=== PATIENT | male | born 1965 | race African-American/Black ===

== ENCOUNTER 2017-02-21 05:52 | Emergency (ER) | payer OTHER ==
[~2017-02-21] VITALS: Ht 175.3 cm; Wt 80.0 kg
[~2017-02-21 05:52] MED LIST: OLAN20TA OR; OMEP20TA39 PO; PROM25SU8 PO; TYLE3 PO
[2017-02-21 05:53] VITALS: BP 144/95; PULSE 78; RESP 16; TEMP 99.2; O2SAT 96
--- NOTE | 2017-02-21 06:17 | PD ---
HPI Chief Complaint: Psychiatric Symptoms Time Seen by Provider: 06:01 Travel History International Travel<30 days: No Contact w/Intl Traveler<30days: No Traveled to known affect area: No History of Present Illness HPI 51-year-old male presents to emergency department requesting refill of his psychotropic medicines. He states that he has been out of [facility] now for 2 months. He had been on medications for bipolar. He states that since she's been out he is been drinking alcohol and smoking marijuana. He is becoming more paranoid. He states that his hearing voices. He feels that there is people under his bed. He has not been sleeping. He is hoping to have his medications refilled. He has not followed up with psychiatric care since his discharge from [facility]. He denies any suicidal or homicidal ideation. Denies any toxic ingestions. No medical complaints other than insomnia. PFSH Past Medical History Narrative Medical Bipolar, substance abuse Seizures: Yes (STATES IN THE PAST ) ?: Not Past Surgical History Surgical History: No Previous Surgery Social History Alcohol Use: Yes Tobacco Use: Yes (2-3 PPD ) Substance Use: Yes (MARIJUANA ) Allergies-Medications (Allergen,Severity, Reaction): Uncoded Allergies: NKDA (Allergy, Severe, 07/26/11) Reported Meds & Prescriptions Reported Meds & Active Scripts Active Hm Omeprazole (Omeprazole) 20 Mg Tab 40 Mg PO DAILY 30 Days Phenergan (Promethazine HCl) 25 Mg Tab 25 Mg PO Q6H PRN FOR NAUSEA/VOMITING Tylenol #3 (Acetaminophen/Codeine Phosphate) 300 Mg/30 Mg Tab 1 Tab PO Q6HPRN Reported Olanzapine 20 Mg Tab 20 Mg OR HS Review of Systems General / Constitutional: No: Fever Eyes: No: Visual changes HENT: No: Headaches Cardiovascular: No: Chest Pain or Discomfort Respiratory: No: Shortness of Breath Gastrointestinal: No: Abdominal Pain Genitourinary: No: Dysuria Musculoskeletal: No: Pain Skin: No Rash Neurologic: No: Weakness Psychiatric: Positive: Anxiety, Depression, Disorder of Thought, Mood Disorder , Substance Abuse, No: Suicidal Ideations, Homicidal Ideation Endocrine: No: Polydipsia Hematologic/Lymphatic: No: Easy Bruising Physical Exam Narrative GENERAL: Well-nourished, well-developed patient. SKIN: Warm and dry. HEAD: Normocephalic and atraumatic. EYES: No scleral icterus. No injection or drainage. ENT: No nasal drainage noted. Mucous membranes pink. Airway patent. NECK: Supple, trachea midline. Moves head freely without obvious discomfort. CARDIOVASCULAR: Regular rate and rhythm without murmurs, gallops, or rubs. RESPIRATORY: Breath sounds equal bilaterally. No accessory muscle use. GASTROINTESTINAL: Abdomen soft, non-tender, nondistended. EXTREMITIES: No cyanosis or edema. BACK: Nontender without obvious deformity. No CVA tenderness. NEURO: Patient is alert and oriented. no sensorimotor deficits. Nonfocal. Normal speech. PSYCH: No delusions. No auditory or visual hallucinations. Data Data Last Documented VS Vital Signs Date Time Temp Pulse Resp B/P (MAP) Pulse Ox O2 Delivery O2 Flow Rate FiO2 02/21/17 05:53 99.2 78 16 144/95 (111) 96 Room Air Orders Orders Ed Discharge Order (02/21/17 06:13) MDM Medical Decision Making Medical Screen Exam Complete: Yes Emergency Medical Condition: Yes Medical Record Reviewed: Yes Differential Diagnosis MDM: High Differential diagnoses: Schizophrenia, schizoaffective disorder, bipolar, anxiety, depression, adjustment reaction, mood disorder NOS, ODD, depressive disorder NOS, dementia, dementia with agitation, psychosis NOS, substance induced mood disorder, DMDD, Asperger syndrome, infection,electrolyte abnormality, malingering. Narrative Course This is a 51-year-old male with a history of bipolar disorder who is requesting a refill of his medications. He is directed towards [facility] to be evaluated this morning and to be set up with an appointment to have his medications refilled. He is not a threat to himself or others. There is no indication for involuntary admission today. Diagnosis Primary Impression: bipolar Referrals: [facility] day Patient Instructions: General Instructions Additional Instructions: Rest. Follow-up with [facility] today for evaluation and medication refill. Return to the ER for emergencies. Med/Other Pt SpecificInfo: No Meds Exist/No RX given Disposition: 01 DISCHARGE HOME Condition: Stable Guerrero Naidu Feb 21, 2017 06:17
== END 2017-02-21 06:53 | disposition home or self-care (01) ==
LOC: NEPD 05:52
DX: F31.9 Bipolar disorder, unspecified (principal); R56.9 Unspecified convulsions; F17.210 Nicotine dependence, cigarettes, uncomplicated
CPT/HCPCS: 99281

== ENCOUNTER 2017-04-14 11:38 | Emergency (ER) | payer OTHER ==
[~2017-04-14] VITALS: Ht 175.3 cm; Wt 85.0 kg
[2017-04-14 11:40] VITALS: BP 151/73; PULSE 55; RESP 18; TEMP 98.1; O2SAT 98
--- NOTE | 2017-04-14 12:11 | PD ---
HPI Chief Complaint: Oral / Dental Pain or Problem Time Seen by Provider: 11:49 Travel History International Travel<30 days: No Contact w/Intl Traveler<30days: No Traveled to known affect area: No History of Present Illness HPI 51-year-old male presents to emergency Department with 2 areas of dental pain and caries over the last several days. Patient is large caries to the upper third molar with localized tenderness and mild swelling. The patient also has pain and swelling to the left lower incisor, again with caries and mild swelling, without significant abscess appreciated. He states some chills and questionable fever. Pain is currently about a 7 out of 10. He's been taking Tylenol without improvement. He denies difficulty swallowing or other symptoms. He has no known drug allergies. PFSH Past Medical History Seizures: Yes (STATES IN THE PAST ) Social History Alcohol Use: Yes Tobacco Use: Yes (2-3 PPD ) Substance Use: Yes (MARIJUANA ) Allergies-Medications (Allergen,Severity, Reaction): Coded Allergies: No Known Allergies (Verified Allergy, Unknown, 04/14/17) Reported Meds & Prescriptions Reported Meds & Active Scripts Active No Active Prescriptions or Reported Medications Review of Systems Except as stated in HPI: all other systems reviewed are Neg General / Constitutional: Positive: Chills, No: Fever Eyes: No: Visual changes HENT: Positive: Dental Difficulties, No: Headaches, Vertigo, Lightheadedness, Sore Throat, Rhinitis, Rhinorrhea, Congestion, Neck Stiffness, Neck Pain, Gingival Bleeding, Ear Discharge, Earache Cardiovascular: No: Chest Pain or Discomfort Respiratory: No: Shortness of Breath Gastrointestinal: No: Abdominal Pain Genitourinary: No: Dysuria Musculoskeletal: No: Pain Skin: No Rash Neurologic: No: Weakness Psychiatric: No: Depression Endocrine: No: Polydipsia Hematologic/Lymphatic: No: Easy Bruising Physical Exam Narrative GENERAL: Patient appears in mild distress. SKIN: Warm and dry. Normal color. Normal turgor. No rash. HEAD: Atraumatic. Normocephalic. No significant swelling is noted. EYES: Pupils equal and round. No scleral icterus. No injection or drainage. ENT: No nasal bleeding or discharge. Mucous membranes pink and moist. Patient' s teeth are in poor repair with multiple caries, and multiple teeth missing. No obvious significant dental abscess noted. Pharynx clear and airway is patent. NECK: Trachea midline. Supple and nontender without lymphadenopathy. No Giovani 's angina appreciated.. CARDIOVASCULAR: Regular rate and rhythm. RESPIRATORY: No accessory muscle use. Clear to auscultation. Breath sounds equal bilaterally. MUSCULOSKELETAL: Extremities without clubbing, cyanosis, or edema. No obvious deformities. NEUROLOGICAL: Awake and alert. No obvious cranial nerve deficits. Motor grossly within normal limits. Five out of 5 muscle strength in the arms and legs. Normal speech. PSYCHIATRIC: Appropriate mood and affect; insight and judgment normal. Data Data Last Documented VS Vital Signs Date Time Temp Pulse Resp B/P (MAP) Pulse Ox O2 Delivery O2 Flow Rate FiO2 04/14/17 11:40 98.1 55 18 151/73 (99) 98 Room Air MDM Medical Decision Making Medical Screen Exam Complete: Yes Emergency Medical Condition: Yes Differential Diagnosis Dental caries. Dental pain. Dental abscess. Narrative Course Patient will be treated with Pen-Vee K 500 mg 4 times a day #40. Patient is given ibuprofen 800 mg 3 times daily with food #30. Patient also given Magic mouthwash every 2 hours as directed 120 mL 1 refill. Patient is to follow with a dental provider soon as possible. Patient can return with worsening symptoms as needed. Diagnosis Primary Impression: Pain due to dental caries Referrals: Dentist Patient Instructions: Dental Abscess (ED), Dental Caries (ED), General Instructions Additional Instructions: Patient will be treated with Pen-Vee K 500 mg 4 times a day #40. Patient is given ibuprofen 800 mg 3 times daily with food #30. Patient also given Magic mouthwash every 2 hours as directed 120 mL 1 refill. Patient is to follow with a dental provider soon as possible. Patient can return with worsening symptoms as needed. Med/Other Pt SpecificInfo: Prescription(s) given Scripts No Active Prescriptions or Reported Meds Disposition: 01 DISCHARGE HOME Condition: Stable Musa Parry Apr 14, 2017 12:11
[2017-04-14] MEDS ORDERED: IBUP1TAB7 PO (12:13)
[2017-04-14] MEDS ORDERED: PENI500T PO (12:13)
[2017-04-14] MEDS ORDERED: MAGICADU2 SWISH-SPIT (12:13)
== END 2017-04-14 12:21 | disposition home or self-care (01) ==
LOC: NEPK 11:38
DX: K02.9 Dental caries, unspecified (principal); F17.200 Nicotine dependence, unspecified, uncomplicated; F12.90 Cannabis use, unspecified, uncomplicated
CPT/HCPCS: 99283

== ENCOUNTER 2017-07-29 17:53 | Emergency (ER) | payer OTHER ==
[~2017-07-29] VITALS: Ht 175.3 cm; Wt 84.1 kg
[~2017-07-29 17:53] MED LIST changes: +IBUP1TAB7 PO; +MAGICADU2 SWISH-SPIT; -OLAN20TA OR; -OMEP20TA39 PO; +PENI500T PO; -PROM25SU8 PO; -TYLE3 PO
[2017-07-29 18:11] VITALS: BP 108/70; PULSE 65; RESP 18; TEMP 98.3; O2SAT 99
--- NOTE | 2017-07-29 18:18 | PD ---
HPI Chief Complaint: Oral / Dental Pain or Problem Time Seen by Provider: 18:14 Travel History International Travel<30 days: No Contact w/Intl Traveler<30days: No Traveled to known affect area: No History of Present Illness HPI 51-year-old male presents emergency department with recurrent dental pain in the right upper jaw. Patient states he has had trouble with this since 3 days ago. He had similar symptoms in April of this past year. He denies fever, chills, or difficulty swallowing. No significant swelling is noted. He has sensitivity to hot and cold. Pain is 8 out of 10. He has been taking ibuprofen for it without much relief. He has no known drug allergies. PFSH Past Medical History Seizures: Yes (STATES IN THE PAST ) Social History Alcohol Use: Yes Tobacco Use: Yes (2-3 PPD ) Substance Use: Yes (MARIJUANA ) Allergies-Medications (Allergen,Severity, Reaction): Coded Allergies: No Known Allergies (Verified Allergy, Unknown, 04/14/17) Reported Meds & Prescriptions Reported Meds & Active Scripts Active Magic Mouthwash Adult Liq (Multi-Ingredient Mouthwash/Gargle) 120 Ml Susp 10 Ml SWISH-SPIT Q2HR Each 5mL contains: Nystatin 200,000units, Diphenhydramine 4.25mg, Viscous Lidocaine 10mg, Plaza syrup 0.8 mL Ibuprofen 800 Mg Tab 800 Mg PO Q8H PRN Penicillin V Potassium 500 Mg Tab 500 Mg PO Q6H 10 Days Review of Systems Except as stated in HPI: all other systems reviewed are Neg General / Constitutional: No: Fever, Chills Eyes: No: Visual changes HENT: Positive: Dental Difficulties, No: Headaches, Vertigo, Lightheadedness, Sore Throat, Rhinitis, Rhinorrhea, Congestion, Nosebleed, Neck Stiffness, Neck Pain, Gingival Bleeding, Ear Discharge, Earache Cardiovascular: No: Chest Pain or Discomfort Respiratory: No: Shortness of Breath Gastrointestinal: No: Abdominal Pain Genitourinary: No: Dysuria Musculoskeletal: No: Pain Skin: No Rash Neurologic: No: Weakness Psychiatric: No: Depression Endocrine: No: Polydipsia Hematologic/Lymphatic: No: Easy Bruising Physical Exam Narrative GENERAL: Patient appears in no obvious distress. SKIN: Warm and dry. Normal color. Normal turgor. HEAD: Atraumatic. Normocephalic. No significant swelling noted EYES: Pupils equal and round. No scleral icterus. No injection or drainage. ENT: No nasal bleeding or discharge. Mucous membranes pink and moist. Patient has large caries in the right upper second and third molar. No significant localized swelling. Area is tender with palpation. NECK: Trachea midline. Supple nontender. CARDIOVASCULAR: Regular rate and rhythm. RESPIRATORY: No accessory muscle use. Clear to auscultation. Breath sounds equal bilaterally. MUSCULOSKELETAL: Extremities without clubbing, cyanosis, or edema. No obvious deformities. NEUROLOGICAL: Awake and alert. No obvious cranial nerve deficits. Motor grossly within normal limits. Five out of 5 muscle strength in the arms and legs. Normal speech. PSYCHIATRIC: Appropriate mood and affect; insight and judgment normal. Data Data Last Documented VS Vital Signs Date Time Temp Pulse Resp B/P (MAP) Pulse Ox O2 Delivery O2 Flow Rate FiO2 07/29/17 18:11 98.3 65 18 108/70 (83) 99 MDM Medical Decision Making Medical Screen Exam Complete: Yes Emergency Medical Condition: Yes Medical Record Reviewed: Yes Differential Diagnosis Dental caries. Dental pain. Dental abscess. Narrative Course Patient is given Pen-Vee K 500 mg 4 times daily for 10 day. Patient is given ibuprofen 800 mg 3 times daily #30. Patient is given Magic mouthwash as directed 120 mL's Patient should follow-up with local dental resources as soon as possible. Diagnosis Primary Impression: Dental abscess Referrals: Dentist Oral Maxillofacial Surgeon Patient Instructions: Dental Abscess (ED), Dental Caries (DC), General Instructions Additional Instructions: Patient is given Pen-Vee K 500 mg 4 times daily for 10 day. Patient is given ibuprofen 800 mg 3 times daily #30. Patient is given Magic mouthwash as directed 120 mL's Patient should follow-up with local dental resources as soon as possible. Scripts Uymxlbwi-Cbehfizgbfwoguo-Iygspngjh Liq (Magic Mouthwash Adult Liq) 120 Ml Susp 10 ML SWISH-SPIT Q2HR for Mouth sores, #120 ML 1 Refill Each 5mL contains: Nystatin 200,000units, Diphenhydramine 4.25mg, Viscous Lidocaine 10mg, Plaza syrup 0.8 mL Prov: Arlyn Villanueva MD 07/29/17 Ibuprofen (Ibuprofen) 800 Mg Tab 800 MG PO Q8H Y for Pain/Inflammation, #30 TAB 0 Refills Prov: Arlyn Villanueva MD 07/29/17 Penicillin V Potassium (Penicillin V Potassium) 500 Mg Tab 500 MG PO Q6H for Infection for 10 Days, #40 TAB 0 Refills Prov: Arlyn Villanueva MD 07/29/17 Disposition: 01 DISCHARGE HOME Condition: Stable Musa Parry Jul 29, 2017 18:18
[2017-07-29] MEDS ORDERED: IBUP1TAB7 PO (18:21)
[2017-07-29] MEDS ORDERED: MAGICADU2 SWISH-SPIT (18:21)
[2017-07-29] MEDS ORDERED: PENI500T PO (18:21)
== END 2017-07-29 18:52 | disposition home or self-care (01) ==
LOC: NEPK 17:53
DX: K04.7 Periapical abscess without sinus (principal); F12.90 Cannabis use, unspecified, uncomplicated; F17.200 Nicotine dependence, unspecified, uncomplicated
CPT/HCPCS: 99283